=== PATIENT | female | born 1950 | race Caucasian/White ===

== ENCOUNTER → 2024-04-18 13:36 | Outpatient (REF) | payer MEDICARE, SELFPAY | LOC: HWWDC 13:36 | PROVIDERS: ATTENDING PHYSICIAN Family Medicine | DX: Z12.31 Encounter for screening mammogram for malignant neoplasm of breast (principal) | CPT/HCPCS: 77063; 77067 ==

== ENCOUNTER 2024-12-17 10:00 | Emergency (ER) | payer MEDICARE, SELFPAY ==
[2024-12-17 10:16] VITALS: BP 146/79
--- NOTE | 2024-12-17 11:42 | ED.GENMED ---
History of Present Illness
General
Chief Complaint: Exposure-Chemical
Time Seen by Provider: 12/17/24 11:29
History of Present Illness
History of Present Illness:
Patient is a 74-year-old female with past medical history of hyperlipidemia and hypothyroidism here today for evaluation of a possible chemical exposure. 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
believes that she came into contact with a gas leak from the kitchen stove. She was exposed to the reported fumes for several hours until another worker smelled the gas fumes as well and ultimately 'fixed' the problem in the kitchen with the stove.
Patient states no other individuals were similarly exposed and no other individuals have similar symptoms at this point. Shortly after being exposed she reports developing onset of a headache associated with nausea and vomiting x 4 yesterday as
well as one-time vomiting today. She also noted lightheadedness and at one point felt like her equilibrium was off. She also reports on 1 occasion she had difficulty speaking which she describes as difficulty raising her voice to become louder.
No difficulty finding her words or confusion. No numbness or tingling. No focal weakness. No fevers or vomiting. No chest pain or difficulty breathing. Today, she reports persistent nausea and did have 1 episode of vomiting. No persistent
dizziness. No other acute complaints. She denies having similar symptoms previously.
Review of Systems
Review of Systems
All Other Systems: ROS reviewed and negative except as documented in HPI and ROS
Phy Exam
Physical Exam
Physical Exam:
GENERAL: Alert , in no apparent distress
EYE: pupils equal and reactive
NECK: Supple, no significant adenopathy.
ENT: o/p clr, mmm.
CARDIAC: Regular rate and rhythm .
LUNGS: Clear breath sounds bilaterally, no acute respiratory distress, no wheezes/rales/rhonchi
ABDOMEN: Soft, without focal tenderness, no r/g, no cvat
NEUROLOGICAL: Alert and oriented, no focal neuro deficits, cranial nerves II through XII intact, moving all extremities, normal sensation and motor
SKIN: Warm and dry, skin intact.
MUSCULOSKELETAL: No edema, well perfused.
PSYCH: Normal and appropriate interaction.
Course
Orders/Labs/Results
Orders:
Orders
12/17/24 11:39
CT Head & Neck Angio W/wo IV Urgent
Comment:
Reason For Exam: headache, dizziness, vomiting
12/17/24 11:41
Electrocardiogram (*1) Urgent
Reason for Study: Vertigo / Dizzy
EKG- Treatment ONCE
12/17/24 12:17
Carboxyhemoglobin Stat
Complete Blood Count/With Diff Urgent
Comprehensive Metabolic Panel Urgent
Magnesium Urgent
PTT Urgent
Phosphorus Urgent
Prothrombin Time Urgent
Troponin I Urgent
Abnormal Lab Results
12/17/24
12:17
MCH 31.4 H pg
(27.0-31.0)
Neutrophils % 76.3 H %
(42.2-75.2)
Lymphocytes % 17.7 L %
(20.5-51.1)
Creatinine 0.5 L mg/dL
(0.6-1.0)
Glucose 106 H mg/dl
(70-99)
Albumin 5.2 H g/dl
(3.5-5.0)
12/17/24 12:17
12/17/24 12:17
Vital Signs
Initial and Last Documented VS:
Initial Vital Signs
Temp Pulse Resp BP Pulse Ox
97.9 F 64 16 146/79 100
12/17/24 10:16 12/17/24 10:16 12/17/24 10:16 12/17/24 10:16 12/17/24 10:16
Last Documented Vital Signs
Temp Pulse Resp BP Pulse Ox
97.9 F 64 16 146/79 100
12/17/24 10:16 12/17/24 10:16 12/17/24 10:16 12/17/24 10:16 12/17/24 10:16
MDM/Problems Addressed
Differential Diagnosis Includes:
Patient is a 74-year-old female with past medical history of hyperlipidemia and hypothyroidism here today for evaluation of a possible chemical exposure. Overall, patient appears well. Vitals remarkable for an elevated blood pressure. Physical
examination described above. On my evaluation the patient is neurologically intact without acute focal deficits appreciated. It is difficult to determine if the patient's symptoms are in fact secondary to an exposure to gas however she is
presenting with concerning signs and symptoms potentially secondary to a CVA or other acute emergent neurological process and given her age, risk factors, and symptoms, I recommended patient to undergo a workup to evaluate for TIA/CVA. Will begin
this.
12/17/2024 14:48: Laboratory testing without acute abnormalities. A CT angio of the head and neck reveals questionable subtle intraparenchymal lesion in the right parietal lobe measuring 8 mm. There is also a 6 mm fusiform aneurysmal dilatation of
the basilar artery tip. Radiology recommends MRI of the brain with and without contrast for further evaluation. Case was discussed with ED attending, Dr. Rodriguez. At this point, the patient appears very well overall. Her symptoms have improved
overall. She is neurologically intact. No ambulatory dysfunction. Symptoms/findings unlikely to be service liaison representative of a CVA/TIA. Findings will require further evaluation with neurology and we discussed outpatient MRI. Patient appears well and
suitable for outpatient follow up. We will prescribe Zofran to take as directed as needed for nausea and recommend continue supportive measures. Patient given return precautions. All questions answered. Stable for discharge.
*Critical Care Note
Total Time (30-74mins, 75-104mins- exclusive of procedures): Not Applicable
ED Attending Note
-
Portions of this chart may have been created with voice recognition software.� Occasional wrong word or��sound alike� substitutions may have occurred due to the inherent limitations of voice recognition software.
Discharge Plan
Departure
Patient Disposition: Home (Routine Discharge)
Date of Disposition: 12/17/24
Time of Disposition: 14:42
Patient with high blood pressure during this ER visit?: Yes
Condition: Good
Covid-19: Not Applicable
Discharge Problem:
Lightheadedness, Nausea and vomiting
Instructions: Dizziness in adults - ED discharge instructions, Acute Nausea and Vomiting
Prescriptions:
New
ondansetron 4 mg tablet,disintegrating
4 mg PO TIDPRN PRN (Reason: nausea/vomiting) 2 Days Qty: 6 0RF
Referrals:
Saroj Tovar MD [Family Provider, Family Practice] - Follow up in 5-7 days
Saroj Anderson MD [Active, Neurology] - Follow up in 1 week
Activity Restrictions/Additional Instructions:
You were seen today for evaluation of nausea/vomiting and lightheadedness.
Your workup today reveals the following on CT imaging:
Questioned subtle intraparenchymal lesion in the right parietal lobe periventricular white matter measuring 8 mm. A follow-up brain MRI would be recommended without and with intravenous contrast for further evaluation.
No CTA evidence for high-grade stenosis or occlusion of the arterial vasculature in the head or neck.
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
We recommend further evaluation with an MRI of your brain with neurology.
Please also follow-up with your family doctor within the next 5 to 7 days for close reevaluation.
Return to the emergency department for any new, worsening or concerning symptoms.
Interventions
Interventions:
*Risk Screen - Suicide Last Done: 12/17/24 10:16
*Neglect/Abuse Screening Last Done: 12/17/24 10:16
Discharge Date and Time
Print Language: DANISH
[2024-12-17 12:27] LABS: % Basophils 0.3 % (0-2); % Eosinophils 0.1 % (0-6); % Immature Granulocytes 0.1 % (0-0.5); % Lymphocytes 17.7 % (20.5-51.1); % Monocytes 5.5 % (1.7-9.3); % Neutrophils 76.3 % (42.2-75.2); Absolute Lymphocytes 1.4 10^3/uL (1.2-3.4); Absolute Monocytes 0.4 10^3/uL (0.1-0.6); Absolute Neutrophils 5.9 10^3/uL (1.4-6.5); Hematocrit 41.3 % (37.0-47.0); Hemoglobin 14.3 g/dL (12.0-16.0); Mean Corp Hgb Conc. 34.6 g/dL (33.0-37.0); Mean Corpuscular Hgb 31.4 pg (27.0-31.0); Mean Corpuscular Volume 90.8 fL (81.0-99.0); Mean Platelet Volume 9.7 fL (7.4-10.4); Nucleated Red Blood Cells % 0 %; Platelet Count 254 10^3/uL (130-400); Red Blood Cell Count 4.55 10^6/uL (4.20-5.40); Red Cell Dist. Width 13.3 % (11.5-14.5); White Blood Cell Count 7.8 10^3/uL (4.8-10.8)
[2024-12-17 12:29] LABS: Carboxyhemoglobin 1.8 %
[2024-12-17 12:40] LABS: INR 1.01; PT 13.6 Sec (11.4-14.6)
[2024-12-17 12:45] LABS: ALT (SGPT) 18 U/L (0-35); AST (SGOT) 25 U/L (14-36); Albumin 5.2 g/dl (3.5-5.0); Alkaline Phosphatase 48 U/L (38-126); Blood Urea Nitrogen 9 mg/dl (7-17); Calcium 9.9 mg/dl (8.4-10.2); Carbon Dioxide 26 mmol/L (22-30); Chloride 105 mmol/L (98-107); Glucose 106 mg/dl (70-99); Magnesium 2.1 mg/dl (1.6-2.3); Phosphorus 3.1 mg/dl (2.5-4.5); Potassium 4.5 mmol/L (3.5-5.1); Sodium 138 mmol/L (135-145); Total Bilirubin 0.8 mg/dl (0.2-1.3); Total Protein 7.8 g/dl (6.3-8.2); eGFR > 60.00
[2024-12-17 12:55] LABS: Troponin I < 0.012 ng/ml
[2024-12-17 13:10] VITALS: BP 131/82
== END 2024-12-17 14:55 | disposition home or self-care (01) ==
LOC: EMR 10:00
PROVIDERS: Physician Assistant; EMERGENCY PHYSICIAN Emergency Medicine; FAMILY PHYSICIAN Family Medicine
DX: R11.2 Nausea with vomiting, unspecified (principal); R42 Dizziness and giddiness; R51.9 Headache, unspecified; E78.5 Hyperlipidemia, unspecified; X58.XXXA Exposure to other specified factors, initial encounter; Z57.5 Occupational exposure to toxic agents in other industries; Y93.89 Activity, other specified; Y92.89 Other specified places as the place of occurrence of the external cause; Y99.0 Civilian activity done for income or pay; R03.0 Elevated blood-pressure reading, without diagnosis of hypertension; E03.9 Hypothyroidism, unspecified; R47.9 Unspecified speech disturbances
CPT/HCPCS: 99284; 70496; 70498; 80053; 82375; 83735; 84100; 84484; 85025; 85610; 85730; Q9967

== ENCOUNTER → 2025-03-22 09:40 | Outpatient (REF) | payer MEDICARE, SELFPAY | LOC: MRI 3T 09:40 | PROVIDERS: ATTENDING PHYSICIAN Family Medicine | DX: R90.89 Other abnormal findings on diagnostic imaging of central nervous system (principal); R42 Dizziness and giddiness; R53.1 Weakness; R11.2 Nausea with vomiting, unspecified | CPT/HCPCS: 70553; A9575 ==

== ENCOUNTER → 2025-04-19 12:39 | Outpatient (REF) | payer MEDICARE, SELFPAY | LOC: HWWDC 12:39 | PROVIDERS: ATTENDING PHYSICIAN Family Medicine | DX: M81.0 Age-related osteoporosis without current pathological fracture (principal); Z12.31 Encounter for screening mammogram for malignant neoplasm of breast; E03.8 Other specified hypothyroidism | CPT/HCPCS: 77063; 77067; 77080 ==